=== PATIENT | male | born 1965 | race African-American/Black ===

== ENCOUNTER 2017-06-29 22:30 | Emergency (ER) | payer BC ==
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
== END 2017-06-30 01:18 | disposition home or self-care (01) ==
LOC: ER 22:30
DX: V49.49XA Driver injured in collision with other motor vehicles in traffic accident, initial encounter; S39.012A Strain of muscle, fascia and tendon of lower back, initial encounter; S29.012A Strain of muscle and tendon of back wall of thorax, initial encounter; Z88.8 Allergy status to other drugs, medicaments and biological substances; S80.01XA Contusion of right knee, initial encounter
CPT/HCPCS: 71045; 99284

== ENCOUNTER 2017-07-09 19:31 | Emergency (ER) | payer BC, SELFPAY ==
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
== END 2017-07-09 22:16 | disposition home or self-care (01) ==
LOC: ER 19:31
DX: S10.83XA Contusion of other specified part of neck, initial encounter (principal); V89.2XXD Person injured in unspecified motor-vehicle accident, traffic, subsequent encounter
CPT/HCPCS: 71046; 76882; 99283

== ENCOUNTER 2018-09-11 18:58 | Emergency (ER) | payer BC ==
--- NOTE | 2018-09-11 19:46 | RAD REPORT ---
EXAM DESCRIPTION: RAD - Knee Left 3 View - 09/11/2018 7:39 pm CLINICAL HISTORY: Left knee pain FINDINGS: No fracture or dislocation is seen. Mild medial joint space narrowing. Small joint effusion suspected
[2018-09-11] MEDS ORDERED: KETOROLAC 30 MG/ML INJ ONE (20:13)
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
--- NOTE | 2018-09-11 20:26 | ER ---
Nurse's Notes [facility] Name: Steve Oviedo III Age: 53 yrs Sex: Male : 1965 Arrival Date: 09/11/2018 Time: 19:01 Bed 16 Private MD: Diagnosis: Sprain of other specified parts of left knee Presentation: 09/11 19:17 Presenting complaint: Patient states: "My left leg started swelling out of no where. I jd3 didn't hurt it or anything. 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 Transition of care: patient was not received from another setting of care. Onset of symptoms was September 11, 2018. Risk Assessment: Do you want to hurt yourself or someone else? Patient reports no desire to harm self or others. Initial Sepsis Screen: Does the patient meet any 2 criteria? No. Patient's initial sepsis screen is negative. Does the patient have a suspected source of infection? No. Patient's initial sepsis screen is negative. Care prior to arrival: None. 19:17 Method Of Arrival: Ambulatory jd3 19:17 Acuity: SEGUNDO 3 jd3 Historical: - Allergies: 19:20 Neosporin ([id number]); jd3 - Home Meds: 19:20 None [Active]; jd3 - PMHx: 19:20 None; jd3 - PSHx: 19:20 hemorrhoids; jd3 - Immunization history:: Adult Immunizations up to date. - Social history:: Smoking status: Patient/guardian denies using tobacco. - Ebola Screening: : Patient negative for fever greater than or equal to 101.5 degrees Fahrenheit, and additional compatible Ebola Virus Disease symptoms. Screenin:42 Abuse screen: Denies threats or abuse. Denies injuries from another. Nutritional ak1 screening: No deficits noted. Tuberculosis screening: No symptoms or risk factors identified. Fall Risk None identified. Assessment: 20:41 General: Appears in no apparent distress. Behavior is calm, cooperative. Pain: ak1 Complains of pain in left leg and left knee. Neuro: No deficits noted. Cardiovascular: No deficits noted. Respiratory: No deficits noted. GI: No signs and/or symptoms were reported involving the gastrointestinal system. : No signs and/or symptoms were reported regarding the genitourinary system. EENT: No signs and/or symptoms were reported regarding the EENT system. Derm: No signs and/or symptoms reported regarding the dermatologic system. Musculoskeletal: Range of motion: intact in all extremities, Swelling present in left knee Reports pain in left knee. 20:52 Reassessment: Patient appears in no apparent distress at this time. No changes from ak1 previously documented assessment. Patient and/or family updated on plan of care and expected duration. Pain level reassessed. Patient is alert, oriented x 3, equal unlabored respirations, skin warm/dry/pink. pt with steady gait at discharge. Patient states feeling better. Vital Signs: 19:20 BP 136 / 96; Pulse 78; Resp 17 S; Temp 98.2(O); Pulse Ox 97% on R/A; Weight 117.93 kg jd3 (R); Height 6 ft. 4 in. (193.04 cm) (R); Pain 5/10; 20:41 BP 115 / 89; Pulse 67; Resp 16; Temp 98.2; Pulse Ox 97% on R/A; Pain 3/10; ak1 19:20 Body Mass Index 31.65 (117.93 kg, 193.04 cm) jd3 ED Course: 19:01 Patient arrived in ED. mr 19:11 Chris Fisher MD is Attending Physician. tw4 19:18 Triage completed. jd3 19:21 Arm band placed on. jd3 19:39 Knee Left 3 View XRAY In Process Unspecified. EDMS 19:43 Anne Mendez, RN is Primary Nurse. ak1 20:27 Tawanda Bautista MD is Referral Physician. tw4 20:42 Patient has correct armband on for positive identification. Bed in low position. Call ak1 light in reach. Side rails up X 1. Adult w/ patient. Pulse ox on. NIBP on. 20:42 No provider procedures requiring assistance completed. Patient did not have IV access ak1 during this emergency room visit. Administered Medications: 20:03 Drug: TORadol 60 mg Route: IM; Site: left gluteus; ak1 20:40 Follow up: Response: No adverse reaction ak1 Outcome: 20:26 Discharge ordered by . tw4 20:42 Discharged to home ambulatory, with family. ak1 20:42 Condition: good 20:42 Discharge instructions given to patient, family, Instructed on discharge instructions, follow up and referral plans. no drinking with medication, no driving heavy equipment, medication usage, Demonstrated understanding of instructions, follow-up care, medications, Prescriptions given X 1. 20:52 Patient left the ED. ak1 Signatures: Dispatcher [employer] EDAR Char KleinAnne RN RN ak1 Adriano Treviño RN RN jd3 Wadley, Terrence, MD MD tw4
== END 2018-09-11 20:52 | disposition home or self-care (01) ==
LOC: ER 18:58
DX: S83.92XA Sprain of unspecified site of left knee, initial encounter (principal)
CPT/HCPCS: 96372; 99284

== ENCOUNTER 2021-06-27 06:18 | Day surgery (SDC) | payer BC ==
[2021-06-27] MEDS ORDERED: Ringers Lactate 1,000 ML IV ONE (06:31)
[2021-06-27] MEDS ORDERED: propofoL 200 MG/20 ML VIAL IV ONE (07:13)
[2021-06-27] MEDS ORDERED: LIDOCAINE 1% MPF 5 ML VIAL ONE (07:13)
--- NOTE | 2021-06-27 08:01 | ENDO RPT ---
[address], [address] COLONOSCOPY PROCEDURE REPORT EXAM DATE: 06/27/2021 PATIENT NAME: Steve Oviedo MR #: [id number] BIRTHDATE: 1965 ATTENDING: Cristo Huston MD STATUS: outpatient OUTBOARD MOTOR MECHANIC: Kayleigh Franks RN and Ana Rosa Oviedo CST INDICATIONS: The patient is a 56 yr old Male here for a colonoscopy due to colon cancer screening PROCEDURE PERFORMED: Screening Colonoscopy MEDICATIONS: Per Anesthesia. ESTIMATED BLOOD LOSS: None CONSENT: The patient understands the risks and benefits of the procedure and understands that these risks include, but are not limited to: sedation, allergic reaction, infection, perforation and/or bleeding. Alternative means of evaluation and treatment include, among others: physical exam, x-rays, and/or surgical intervention. The patient elects to proceed with this endoscopic procedure. DESCRIPTION OF PROCEDURE: During intra-op preparation period all mechanical medical equipment was checked for proper function. Hand hygiene and appropriate measures for infection prevention was taken. Procedure, possible complications, alternatives including, but not limited to possibility of bleeding, perforation, tear, infection, sepsis, need for surgery, need for blood transfusion, were explained to the patient. After the risks, benefits and alternatives of the procedure were thoroughly explained, Informed consent was verified, confirmed and timeout was successfully executed by the treatment team. The patient was placed in the left lateral position. A digital rectal exam was performed and revealed external hemorrhoids. After appropriate level of anesthesia, the scope was passed. The EC-[id number] ([id number]) endoscope was introduced through the anus and advanced to the cecum, which was identified by transillumination from the light source, the appendix, and the ileocecal valve. The quality of the prep was good. The instrument was then slowly withdrawn as the colon was fully examined. Scope withdrawal time was . COLON FINDINGS: Internal and external hemorrhoids were found. Retroflexed views revealed no abnormalities and Retroflexed views revealed small hemorrhoids. The scope was then completely withdrawn from the patient and the procedure terminated. ADVERSE EVENTS: There were no complications. IMPRESSIONS: Internal and external hemorrhoids RECOMMENDATIONS: 1. follow-up: office 1-2 week(s) 2. hemorrhoidal hygiene RECALL: Return in 5-10 year(s) for Colonoscopy. Cristo Huston MD eSigned: Cristo Huston MD 06/27/2021 8:01 AM cc: Nan DIAZ CPT CODES: ICD9 CODES: PATIENT NAME: Steve Oviedo MR#: [id number]
[2021-06-27 08:25] VITALS: O2SAT 97
[2021-06-27 08:32] VITALS: BP 121/82; TEMP 97.5
== END 2021-06-27 08:35 | disposition home or self-care (01) ==
LOC: PRE 06:18
PROVIDERS: ATTEND Surgery
PROC: 0DJD8ZZ Inspection of Lower Intestinal Tract, Via Natural or Artificial Opening Endoscopic (ICD-10-PCS; principal; 2021-06-27 07:30)
DX: Z12.11 Encounter for screening for malignant neoplasm of colon (principal); N40.0 Benign prostatic hyperplasia without lower urinary tract symptoms; K64.4 Residual hemorrhoidal skin tags; K64.8 Other hemorrhoids; Z20.822 Contact with and (suspected) exposure to COVID-19
CPT/HCPCS: 45378; U0003; J2704; J7120

== ENCOUNTER 2021-07-23 09:30 | Day surgery (SDC) | payer BC ==
[2021-07-23 10:22] LABS: Absolute Lymphocytes (CBC) 1.5 K/uL (0.7-4.9); Hematocrit 40.4 % (39.6-49.0); Lymphocytes % 39.2 % (15.3-44.8); MPV 7.3 fL (7.6-11.3); RBC Red Blood Cell Count 5.57 M/uL (4.33-5.43)
[2021-07-23] MEDS ORDERED: Ringers Lactate 1,000 ML IV ONE (10:27)
[2021-07-23] MEDS ORDERED: CEFAZOLIN SODIUM 1 GM/VIAL ONE (10:28)
[2021-07-23 10:40] LABS: Potassium 3.9 mmol/L (3.5-5.1)
[2021-07-23] MEDS ORDERED: FENTANYL CITR 100 MCG/2 ML ONE (10:40)
[2021-07-23] MEDS ORDERED: propofoL 200 MG/20 ML VIAL IV ONE (10:40)
[2021-07-23] MEDS ORDERED: MIDAZOLAM HCL 2 MG/2 ML INJ ONE (10:40)
[2021-07-23] MEDS ORDERED: ROCURONIUM 50 MG/5 ML VIAL IV ONE (10:41)
[2021-07-23] MEDS ORDERED: LIDOCAINE 1% MPF 2 ML AMPULE ONE (10:41)
[2021-07-23] MEDS ORDERED: ONDANSETRON 4 MG/2 ML VIAL ONE (10:41)
--- NOTE | 2021-07-23 11:19 | RAD REPORT ---
EXAM DESCRIPTION: Pricila Peterson (2 Views)07/23/2021 10:56 am CLINICAL HISTORY: Preop for hernia repair COMPARISON: 2018 FINDINGS: The lungs appear clear of acute infiltrate. The heart is normal size. A BB overlies the r ight lateral chest wall IMPRESSION: No acute abnormalities displayed
[2021-07-23] MEDS ORDERED: dexAMETHasone 4 MG/ML VIAL ONE (11:26)
[2021-07-23] MEDS ORDERED: EPHEDRINE SULF 50 MG/ML VIAL ONE (11:51)
--- NOTE | 2021-07-23 12:03 | P.BOP ---
Preoperative diagnosis: Tender Ventral hernia Postoperative diagnosis: same Primary procedure: Laparoscopic repair of Tender Ventral hernia with mesh Donor Relations Coordinator: MARY MARTINEZ (Michael) Estimated blood loss: <10cc Specimen: sac Findings: ventral hernia with omentum and falciform fatty tissue Anesthesia: MAC Complications: None Implants: medium ventralex mesh Transferred to: Recovery Room Condition: Good
[2021-07-23] MEDS ORDERED: KETOROLAC 30 MG/ML INJ ONE (12:08)
[2021-07-23 12:48] VITALS: O2SAT 99
--- NOTE | 2021-07-23 12:58 | OP ---
Date of Procedure: 07/23/2021 Surgeon: Cristo Huston MD Zone Supervisor Firearms: JOSE Hernandez. Preoperative Diagnosis: Tender ventral hernia. Postoperative Diagnosis: Tender ventral hernia. Procedure: Laparoscopic repair of tender ventral hernia with mesh. Estimated Blood Loss: Less than 10 cc. Specimen: Hernia sac. Implant: A medium Ventralex mesh. Anesthesia: General plus local. Finding: A ventral hernia midway between the epigastric and umbilical region. Indication: This is the case of a male, who comes to us with a ventral hernia. Given pain and disco mfort, it is becoming more difficult to push it back. He wants that repaired. Benefits, alternative s, and risks of laparoscopic possible open repair of ventral hernia fully explained with mesh, which include, but not limited to infection, bleeding, damage to adjacent structures, anesthesia complicati on, recurrence, NM and even . He also understands this may not relieve any symptoms. He might need more than one surgical intervention. He understood, signed a consent. He understands also the importance of losing weight to minimize the chance of recurrence. The area of concern was marked by me and the patient in the holding room. Procedure In Detail: The patient was brought to the operating room, placed in supine position. Anes thesia was done without complication. Abdominal area was prepped and draped in the usual sterile fas hion. A time-out was called. An incision was made in the area that we palpated with the hernia. In cision was carried down to fascia. We noticed the fascial edges and cleaned them, removed the hernia sac, noted some adhesions to the hernia sac. Carefully, we reduced the part of the content and care fully placed a Dona trocar through it and that allowed me to laparoscopically visualize the area of the abdomen after put two 5 mm trocars in the left and right side. Once we look at that, we looked at the midline. We were able to carefully remove the adhesions and some of the falciform ligament th at was attached to this area with the help of LigaSure device. At that moment, I proceeded to clean the fascial edges in order for us to fix this tension-free. We are going to have to use a Ventralex mesh in that region. We dropped a medium Ventralex mesh to overlap the area about 3-5 cm. Once the trocar was removed, the strap of this was secured in place until we could use CapSure fixation device to secure the mesh in place to make sure there is no intestines in between. The straps were removed . The fascia was approximated using a irnver-hg-kyhtp fashion with #1 Vicryl multiple times. We hav e that seal to water proof and also air. So, we continued the fixation of this with the use of CapSu re under direct visualization circumferentially. We looked at the area, then we removed some adhesio ns that were attached to the hernia sac and they looks intact with no bleeding. At that moment, I pr oceeded to deflate the area. Under direct visualization, removed the trocars. Deflated pneumoperito neum completely. Closed subcutaneous tissue with 3-0 chromic and the skin in a subcuticular fashion with 3-0 chromic and Steri-Strips on top. Sponge count and instrument counts correct. The patient t olerated the procedure well. The patient on his way to recovery in stable condition. HODAN/ALEENA Voice ID: [id number] Report ID: [id number]
--- NOTE | 2021-07-23 12:58 | DS ---
Diagnosis: Tender ventral hernia, reducible. Procedure: Laparoscopic ventral hernia repair with mesh. Disposition: Home. Activity: As tolerated. No heavy lifting. Plan: Follow up in my office in 1 week. Call for appointment at [phone]. Keep area dry for 48 isidro rs, then may shower. Keep Steri-Strip intact. Abdominal binder while he is out of bed. HODAN/ALEENA Voice ID: [id number] Report ID: [id number]
[2021-07-23 13:15] VITALS: BP 137/78; TEMP 98.2
[2021-07-23] MEDS ORDERED: CODEINE 30MG/APAP 300MG TAB PO ONE (13:25)
[2021-07-23] MEDS ORDERED: CODEINE 30MG/APAP 300MG TAB ONE (13:27)
--- NOTE | 2021-07-24 09:00 | EKG ---
Test Date: 2021-07-23 Test Time: 09:24:07 Service Desk Associate: BLAS MEASUREMENT RESULTS: Intervals: Rate: 53 CO: 162 QRSD: 110 QT: 432 QTc: 405 Hooper: P: 66 CO: 162 QRS: 82 T: 62 INTERPRETIVE STATEMENTS: Sinus bradycardia Otherwise normal ECG No previous ECG available for comparison Electronically Signed On 07-24-21 08:58:23 CDT by Daniel Wills
== END 2021-07-23 13:50 | disposition home or self-care (01) ==
LOC: OR 09:30
PROVIDERS: ATTEND Surgery
PROC: 0WUF4JZ Supplement Abdominal Wall with Synthetic Substitute, Percutaneous Endoscopic Approach (ICD-10-PCS; principal; 2021-07-23 12:30)
DX: K43.9 Ventral hernia without obstruction or gangrene (principal); Z20.822 Contact with and (suspected) exposure to COVID-19
CPT/HCPCS: 93005; 85025; 80048; 36415; 88302; 71046; 49652; U0003; J2704; J1100; J2250; J3010; J7120; J2405; J0690